=== PATIENT | female | born 1960 | race Caucasian/White ===

== ENCOUNTER → 2022-04-21 | Outpatient (CLI) | payer OTHER ==
[2022-04-21 09:45] LABS: BUN/CREATININE RATIO 22 (0-10)
== END ==
LOC: CT 08:17
PROVIDERS: Nurse Practitioner Family
DX: Z13.220 Encounter for screening for lipoid disorders (principal); R26.81 Unsteadiness on feet
CPT/HCPCS: 36415; 70470; 80053; 80061; 82550; Q9967